=== PATIENT | male | born 1990 | race Caucasian/White ===

== ENCOUNTER → 2019-03-30 | Outpatient (CLI) | payer OTHER ==
--- NOTE | 2019-03-30 13:17 | Diagnostic Imaging Report ---
Left lower extremity ultrasound. History: Left calf posterior swelling. Discussion: Grayscale sonographic imaging of the left posterior calf was performed in the region of the indicated swelling. Mild subcutaneous edema is identified. There is no focal fluid collection or mass. IMPRESSION: Subcutaneous edema without focal fluid collection. Signed by: Salvador Horton on 03/30/2019 1:14 PM
== END ==
LOC: RAD 12:14
PROVIDERS: ATTEND Family Medicine
DX: R22.42 Localized swelling, mass and lump, left lower limb (principal)
CPT/HCPCS: 76882; 93971